=== PATIENT | male | born 1980 | race Caucasian/White ===

== ENCOUNTER 2016-09-21 13:34 | Emergency (ER) | payer OTHER ==
[2016-09-21] MEDS ORDERED: SODIUM CHLORIDE 0.9% 1000 ML INFUS.BAG IV ONE (13:45)
[2016-09-21 14:02] VITALS: BP 147/94; PULSE 57; TEMP 97.9; BMI 27.3
[2016-09-21 14:23] LABS: EOSINOPHIL 1.4 % (0-4.5); MCHC 35.2 g/dl (32.0-35.9); MEAN CELL VOLUME 91.1 fl (80-96); MEAN PLT VOLUME 8.8 fl (7.5-11.1); NEUTROPHILS 63.7 % (42.8-82.8); PLATELET COUNT 197 K/MM3 (134-434); RDW 11.7 % (11.9-15.9); WHITE BLOOD COUNT 4.8 K/mm3 (4.0-10.8)
--- NOTE | 2016-09-21 14:33 | PDOC ---
History of Present Illness - General Chief Complaint: Electrocution Stated Complaint: ELECTROCUTION WHEN CHANGE LIGHT BULB Time Seen by Provider: 09/21/16 13:44 History Source: Patient, Spouse Exam Limitations: No Limitations - History of Present Illness Initial Comments: 09/21/16 15:28 CHIEF COMPLAINT: Possible electric shock HISTORY OF PRESENT ILLNESS: This is a healthy 36-year-old man who was at home changing a light bulb. Adjacent to the bulb that he was unscrewing was another bulb that was broken. He thinks his forearm or finger may have brushed against it and he felt a funny sensation. He got down off the ladder and then became anxious that he might have been exposed to an electric shock. He went to the urgent care center and was told that his EKG was slightly abnormal. They advised him to come to the emergency room. The area of the possible electric shock is on the right hand. There are no signs of any skin injury to that area. He denies any sensation of electricity passing through his body. He was standing on a ladder and there was no water or moisture around him at the time of the potential injury. REVIEW OF SYSTEMS: There is no skin pain or arm pain. There is no chest pain or shortness of breath There is no palpitation or dizziness There is no change in the urine, no Tea colored urine, Past History - Past Medical History Allergies/Adverse Reactions: Allergies Allergy/AdvReac Type Severity Reaction Status Date / Time No Known Allergies Allergy Verified 09/21/16 13:36 Home Medications: Ambulatory Orders NK [No Known Home Medication] 09/21/16 Asthma: No Diabetes: No HTN: No Other medical history: EKG DIFFERENCE? - Psycho/Social/Smoking Cessation Hx Anxiety: No Suicidal Ideation: No Smoking History: Never smoked Hx Alcohol Use: Yes Drug/Substance Use Hx: No Substance Use Type: Alcohol *Physical Exam - Vital Signs Last Vital Signs Temp Pulse Resp BP Pulse Ox 97.9 F 57 L 18 147/94 100 09/21/16 13:35 09/21/16 13:35 09/21/16 13:35 09/21/16 14:04 09/21/16 13:35 - Physical Exam Comments: 09/21/16 15:31 GENERAL: The patient is awake, alert, and fully oriented, in no acute distress. HEAD: Normal with no signs of trauma. EYES: Pupils equal, round and reactive to light, extraocular movements intact, sclera anicteric, conjunctiva clear. ENT: Ears normal, nares patent, oropharynx clear without exudates. Moist mucous membranes. NECK: Normal range of motion, supple without lymphadenopathy, JVD, or masses. LUNGS: Breath sounds equal, clear to auscultation bilaterally. No wheezes, and no crackles. HEART: Regular rate and rhythm, normal S1 and S2 without murmur, rub or gallop. ABDOMEN: Soft, nontender, normoactive bowel sounds. No guarding, no rebound. No masses. EXTREMITIES: Normal range of motion, no edema. No clubbing or cyanosis. No cords, erythema, or tenderness. No pain or swelling in the right hand or forearm. NEUROLOGICAL: Cranial nerves II through XII grossly intact. Normal speech, normal gait. PSYCH: Normal mood, normal affect. SKIN: Warm, Dry, normal turgor, no rashes or lesions noted. Right hand and arm with no signs of electrical hines. Heart Score/ECG Review - ECG Intrepretation Comment:: 09/21/16 14:31 Twelve-lead EKG shows normal sinus rhythm/sinus bradycardia at a rate of 56 bpm. The axis is normal. The intervals demonstrate a normal TX interval, normal QT interval, and a borderline QRS interval of 106 ms. There is an incomplete right bundle branch block pattern. There are no acute ST elevations or depressions. There are no abnormal T-wave inversions. There is a comparison EKG from 12/03/2012 provided by the patient. There are no acute changes since December 03 with the exception of a slightly increased QRS duration. The morphology of the EKG is otherwise unchanged. Impression: Sinus bradycardia at 56 bpm with borderline incomplete right bundle branch block. No acute Ischemic changes. ED Treatment Course - LABORATORY CBC & Chemistry Diagram: 09/21/16 14:04 09/21/16 14:04 - Medications Given in the ED: ED Medications Discontinued Medications Generic Name Dose Route Start Last Admin Trade Name Freq PRN Reason Stop Dose Admin Sodium Chloride 1,000 ml 09/21/16 13:45 09/21/16 14:04 Normal Saline - IV 09/21/16 13:46 1,000 ml ONCE ONE Administration Medical Decision Making - Medical Decision Making 09/21/16 15:32 Patient presents after possible exposure to an electrical current. He did not feel any kind of shock go through his body, but he became concerned after his hand and forearm came in contact with a broken light bulb in the socket when he was changing an intact light bulb. The urgent care center was concerned because of a right bundle branch block on EKG. Patient is currently asymptomatic in the ED. His physical examination is completely normal. Twelve- lead EKG shows incomplete right bundle branch block but is otherwise unremarkable. Laboratory workup is as noted. Laboratory Tests 09/21/16 09/21/16 09/21/16 14:04 14:04 14:04 WBC 4.8 RBC 4.65 Hgb 14.9 Hct 42.3 MCV 91.1 MCHC 35.2 RDW 11.7 L Plt Count 197 MPV 8.8 Neutrophils % 63.7 Lymphocytes % 27.3 Monocytes % 5.6 Eosinophils % 1.4 Basophils % 2.0 Sodium 138 Potassium 4.2 Chloride 102 Carbon Dioxide 28 Anion Gap 8 BUN 15 Creatinine 1.0 Creat Clearance w eGFR > 60 Random Glucose 127 H Calcium 9.2 Total Bilirubin 1.0 AST 22 ALT 27 Alkaline Phosphatase 35 Creatine Kinase 160 CK-MB (CK-2) 3.0 CK-MB (CK-2) Rel Index 1.9 Troponin I < 0.03 L Total Protein 6.7 Albumin 4.4 CK and troponin are normal. Chemistry studies show a mildly elevated glucose, but this is not fasting. White blood cell count is normal. Impression: No significant electrical injury. No concern for cardiac abnormality. Patient is stable for discharge. *DC/Admit/Observation/Transfer Diagnosis at time of Disposition: Electric shock Qualifiers: Encounter type: initial encounter Qualified Code(s): T75.4XXA - Electrocution, initial encounter - Discharge Dispostion Disposition: HOME Condition at time of disposition: Stable Admit: No - Patient Instructions Printed Discharge Instructions: DI for Electric Shock Injuries Additional Instructions: You were evaluated today after a possible electric shock. All of your lab tests came out fine. Your EKG also was fine. Drink plenty of fluids and rest for the remainder of the day. Follow up with your primary care physician as needed. Return to the emergency department for any severe or progressive symptoms. It is expected that you should have an uneventful recovery.
[2016-09-21 14:49] LABS: CPK(DFH) 160 IU/L (38-174)
[2016-09-21 14:50] LABS: ALBUMIN 4.4 g/dl (3.5-5.0); ALK PHOS 35 U/L (32-92); ANION GAP 8 (8-16); CALCIUM 9.2 mg/dl (8.4-10.2); CO2 28 mmol/L (22-28); GLUCOSE,RANDOM 127 mg/dl (74-106); SGOT/AST 22 U/L (10-42); SGPT/ALT 27 U/L (10-40); TOT PROT 6.7 g/dl (6.4-8.3)
[2016-09-21 14:51] LABS: COCKROFT - GAULT NT
[2016-09-21 15:15] LABS: TROPONIN I (DFP) < 0.03 ng/ml (0.03-0.50)
--- NOTE | 2016-09-22 13:01 | EKG ---
Test Reason : Blood Pressure : / mmHG Vent. Rate : 056 BPM Atrial Rate : 056 BPM P-R Int : 156 ms QRS Dur : 106 ms QT Int : 430 ms P-R-T Axes : 049 036 001 degrees QTc Int : 414 ms SINUS BRADYCARDIA WITH SINUS ARRHYTHMIA INCOMPLETE RIGHT BUNDLE BRANCH BLOCK NONSPECIFIC T WAVE ABNORMALITY BORDERLINE ECG NO PREVIOUS ECGS AVAILABLE Confirmed by DIANE SANCHEZ MD ([id number] on 09/22/2016 1:01:14 PM Referred By: YUDELKA COLLINS Confirmed By:DIANE SANCHEZ MD
== END 2016-09-21 15:41 | disposition home or self-care (01) ==
LOC: FER 13:34
DX: T75.4XXA Electrocution, initial encounter (principal); X58.XXXA Exposure to other specified factors, initial encounter; Y93.89 Activity, other specified; Y92.009 Unspecified place in unspecified non-institutional (private) residence as the place of occurrence of the external cause
CPT/HCPCS: 36415; 80053; 82550; 82553; 84484; 85025; 93005; 93010; 99284-25